=== PATIENT | female | born 1960 | race African-American/Black ===

== ENCOUNTER → 2017-06-29 | Outpatient (CLI) | payer OTHER | LOC: MC.RAD 07:20 | DX: Z12.31 Encounter for screening mammogram for malignant neoplasm of breast (principal) ==

== ENCOUNTER → 2017-10-13 | Outpatient (CLI) | payer OTHER | LOC: MC.RAD 13:00 | DX: N64.4 Mastodynia (principal) ==

== ENCOUNTER 2018-12-01 22:35 | Emergency (ER) | payer SELFPAY ==
[2018-12-01 22:50] VITALS: BP 104/64; TEMP 98.5
[2018-12-02 01:21] VITALS: PULSE 87
== END 2018-12-02 01:22 | disposition home or self-care (01) ==
LOC: COL.ER 22:35
DX: S99.911A Unspecified injury of right ankle, initial encounter (principal); X50.1XXA Overexertion from prolonged static or awkward postures, initial encounter; Y93.02 Activity, running; Y92.219 Unspecified school as the place of occurrence of the external cause
CPT/HCPCS: Q4045